=== PATIENT | female | born 1960 | race Caucasian/White ===

== ENCOUNTER 2017-04-22 13:42 | Emergency (ER) | payer MEDICAID ==
[~2017-04-22] VITALS: Ht 165.1 cm; Wt 61.7 kg
[2017-04-22 13:50] VITALS: BP 137/82
== END 2017-04-22 14:44 | disposition home or self-care (01) ==
LOC: ED 14:40
DX: K11.21 Acute sialoadenitis (principal)
CPT/HCPCS: 99283

== ENCOUNTER → 2017-06-09 | Outpatient (CLI) | payer MEDICAID | END | disposition home or self-care (01) | LOC: CFH 06:57 | PROVIDERS: ATTEND Internal Medicine Hematology & Oncology | DX: E83.110 Hereditary hemochromatosis (principal) | CPT/HCPCS: 76700 ==

== ENCOUNTER → 2017-06-18 | Outpatient (CLI) | payer MEDICAID | END | disposition home or self-care (01) | LOC: CFH 13:05 | PROVIDERS: ATTEND Internal Medicine Hematology & Oncology | DX: Z12.31 Encounter for screening mammogram for malignant neoplasm of breast (principal) | CPT/HCPCS: 77067 ==

== ENCOUNTER 2019-12-20 14:55 | Emergency (ER) | payer MEDICAID ==
--- NOTE | 2019-12-20 15:07 | NUR ---
PT BIB EMS FOR NEAR SYNCOPLE EPISODE. 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 PT DONATED 530MLS OF BLOOD TODAY. WENT TO EAT AFTER AND AT THE [facility]AURANT FELT DIZZY, NAUSEOUS, AND "I WAS HAVING TUNNEL VISION". STATES SHE WAS PALE AND SWEATY WELL. PT SAYS SHE DIDNT LOSE CONCIOUSNESS. 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 BLANKET PROVIDED. IN ROOM. CURRENTLY ONLY COMPLAINT PT HAS IS A HEADACHE
[2019-12-20 16:13] LABS: MEAN CORPUSCULAR HEMOGLOBIN 33.5 pg (27.0-34.8); MEAN CORPUSCULAR HGB CONC 31.9 g/dL (32.4-35.8); MEAN CORPUSCULAR VOLUME 105.1 fL (80-100); PLATELET COUNT 237 x10^3/uL (130-400); RED BLOOD COUNT 3.58 x10^6/uL (3.82-5.3); RED CELL DISTRIBUTION WIDTH 14.2 % (9.6-15.2)
[2019-12-20 16:21] VITALS: BP 101/54
[2019-12-20 16:25] LABS: ANION GAP 7 mmol/L (5-15); CALCIUM 8.4 mg/dL (8.5-10.1); CHLORIDE 110 mmol/L (98-107)
[2019-12-20 16:27] LABS: CREATININE 0.67 mg/dL (0.55-1.02)
[2019-12-20 16:56] LABS: BASOPHILS # (AUTO) 0.04 x10^3/uL (0-0.1); BASOPHILS % (AUTO) 0 % (0-1); EOSINOPHILS # (AUTO) 0.13 x10^3/uL (0-0.4); EOSINOPHILS % (AUTO) 1 % (1-7); LYMPHOCYTES # (AUTO) 1.66 x10^3/uL (1-3.4); LYMPHOCYTES % (AUTO) 15 % (22-44); MD SCAN; MONOCYTES # (AUTO) 0.41 x10^3/uL (0.2-0.8); MONOCYTES % (AUTO) 4 % (2-9); NEUTROPHILS # (AUTO) 8.76 x10^3/uL (1.8-6.8); NEUTROPHILS % (AUTO) 80 % (42-75)
== END 2019-12-20 17:26 | disposition home or self-care (01) ==
LOC: ED 15:39
DX: R55 Syncope and collapse (principal); R42 Dizziness and giddiness; R11.0 Nausea; R51 Headache; R94.31 Abnormal electrocardiogram [ECG] [EKG]; F17.210 Nicotine dependence, cigarettes, uncomplicated
CPT/HCPCS: 36415; 80048; 85025; 93005; 99284

== ENCOUNTER 2020-04-01 16:17 | Emergency (ER) | payer MEDICAID ==
[~2020-04-01] VITALS: Ht 167.6 cm; Wt 57.5 kg
[2020-04-01] MEDS ORDERED: METR375C PO (16:29)
[2020-04-01] MEDS ORDERED: SODIUM CHLORIDE FLUSH 10ML SYR IVF ONE (17:30)
[2020-04-01] MEDS ORDERED: SODIUM CHLORIDE 0.9% 1,000ML IVBOLUS ONE (17:30)
[2020-04-01 17:58] LABS: BASOPHILS % (AUTO) 0 % (0-1); EOSINOPHILS % (AUTO) 0 % (1-7); LYMPHOCYTES % (AUTO) 17 % (22-44); MEAN CORPUSCULAR HEMOGLOBIN 30.1 pg (27.0-34.8); MEAN CORPUSCULAR HGB CONC 32.6 g/dL (32.4-35.8); MEAN PLATELET VOLUME 7.9 fL (7.4-10.4); MONOCYTES % (AUTO) 9 % (2-9); NEUTROPHILS % (AUTO) 74 % (42-75); PLATELET COUNT 117 x10^3/uL (130-400); RED BLOOD COUNT 4.63 x10^6/uL (3.82-5.3); RED CELL DISTRIBUTION WIDTH 21.5 % (9.6-15.2)
[2020-04-01 18:03] LABS: MD NO
[2020-04-01 18:08] LABS: ALANINE AMINOTRANSFERASE 49 U/L (12-78); ALBUMIN 3.7 g/dL (3.4-5.0); ANION GAP 7 mmol/L (5-15); CALCIUM 8.7 mg/dL (8.5-10.1); CHLORIDE 103 mmol/L (98-107); CREATININE 0.81 mg/dL (0.55-1.02); IRON LEVEL 247 mcg/dL (50-170)
[2020-04-01 18:11] LABS: % IRON SATURATION 84 % (20-55); ALKALINE PHOSPHATASE 141 U/L (45-117); BILIRUBIN,TOTAL 0.8 mg/dL (0.2-1.0); TOTAL IRON BINDING CAPACITY 294 mcg/dL (250-450); TOTAL PROTEIN 7.6 g/dL (6.4-8.2)
--- NOTE | 2020-04-01 19:09 | NUR ---
Back from ct Report from Ferdinand DING With assessment vss, no neuro deficits at this time Reviewed estimated poc
--- NOTE | 2020-04-01 19:28 | NUR ---
ivf complete. provider to bedside to explain poc (dispo)
[2020-04-01 20:13] VITALS: BP 150/75
== END 2020-04-01 20:17 | disposition home or self-care (01) ==
LOC: ED 16:42
DX: R56.9 Unspecified convulsions (principal); R55 Syncope and collapse; R00.0 Tachycardia, unspecified; F17.200 Nicotine dependence, unspecified, uncomplicated
CPT/HCPCS: 36415; 70450; 80053; 82728; 83540; 83550; 85025; 96360; 99284; J7030

== ENCOUNTER 2021-01-30 12:34 | Inpatient (IN) | payer MEDICAID ==
[~2021-01-30] VITALS: Ht 167.6 cm; Wt 68.2 kg
[~2021-01-30 12:34] MED LIST: METR375C PO
[2021-01-30 13:34] LABS: BASOPHILS % (AUTO) 0 % (0-1); EOSINOPHILS % (AUTO) 1 % (1-7); LYMPHOCYTES % (AUTO) 12 % (22-44); MEAN CORPUSCULAR HEMOGLOBIN 34.2 pg (27.0-34.8); MEAN CORPUSCULAR HGB CONC 33.9 g/dL (32.4-35.8); MEAN PLATELET VOLUME 8.8 fL (7.4-10.4); MONOCYTES % (AUTO) 6 % (2-9); NEUTROPHILS % (AUTO) 80 % (42-75); PLATELET COUNT 212 x10^3/uL (130-400); RED BLOOD COUNT 3.88 x10^6/uL (3.82-5.3); RED CELL DISTRIBUTION WIDTH 14.9 % (9.6-15.2)
[2021-01-30 13:44] LABS: ALANINE AMINOTRANSFERASE 25 U/L (12-78); ANION GAP 13 mmol/L (5-15); CALCIUM 8.4 mg/dL (8.5-10.1); CHLORIDE 86 mmol/L (98-107); CREATININE 0.68 mg/dL (0.55-1.02)
[2021-01-30 13:46] LABS: ALKALINE PHOSPHATASE 375 U/L (45-117); TOTAL PROTEIN 6.4 g/dL (6.4-8.2)
--- NOTE | 2021-01-30 13:51 | NUR ---
K+ 2.4 preeti: 15.9
[2021-01-30 13:52] LABS: BILIRUBIN,TOTAL 15.9 mg/dL (0.2-1.0)
[2021-01-30] MEDS ORDERED: FAMOTIDINE 20 MG/2 ML IVPush ONE (14:30)
[2021-01-30] MEDS ORDERED: SODIUM CHLORIDE FLUSH 10ML SYR IVF ONE (14:30)
[2021-01-30] MEDS ORDERED: SODIUM CHLORIDE 0.9% 1,000ML IVBOLUS ONE ×2 (14:30→16:30)
[2021-01-30] MEDS ORDERED: ONDANSETRON 2MG/ML, 2ML IVPush ONE (14:30)
[2021-01-30] MEDS ORDERED: MORPHINE SULFATE 4 MG/ML, 1ML IVPush PRN (14:30)
--- NOTE | 2021-01-30 14:30 | NUR ---
PT BIB SELF VIA POV. PER PT PROGRESSIVE ABD PAIN X5 DAYS. N/V. PT JAUNDICE, BLOATED ABD. PT STATES SHE HAS NO HX OF THIS PAIN. PT REPORTS ONLY ABD SURGERY IS HYSTERECTOMY. PT RESTING IN RBRONX, MONITORING IN PLACE, NADN AT THIS TIME, PIV PLACED IN LEFT R AC, WCTM.
[2021-01-30] MEDS ORDERED: MORPHINE SULFATE 4 MG/ML, 1ML ONE (14:35)
[2021-01-30] MEDS ORDERED: ONDANSETRON 2MG/ML, 2ML ONE (14:35)
[2021-01-30] MEDS ORDERED: FAMOTIDINE 20 MG/2 ML ONE (14:36)
[2021-01-30 14:50] LABS: INTERNATIONAL NORMALIZED RATIO 1.72 (0.93-1.1); PROTHROMBIN TIME 17.9 Seconds (9.6-11.5)
[2021-01-30] MEDS ORDERED: POTASSIUM CHLORIDE 40 MEQ in SODIUM CHLORIDE 0.9% 500 ML IV ONE (15:00)
[2021-01-30] MEDS ORDERED: OMNIPAQUE 350 MG/ML, 100ML BOTTLE ONE (15:08)
[2021-01-30 16:51] LABS: MICROSCOPIC INDICATED
[2021-01-30] MEDS ORDERED: ENALAPRILAT 1.25 MG/ML, 2ML IVPush PRN (17:00)
[2021-01-30] MEDS ORDERED: DILTIAZEM 5 MG/ML, 5ML IVPush PRN (17:00)
[2021-01-30] MEDS ORDERED: hydrALAzine 20 MG/ML, 1ML IVPush PRN (17:00)
[2021-01-30] MEDS ORDERED: LABETALOL 5MG/ML, 20ML IVPush PRN (17:00)
[2021-01-30] MEDS ORDERED: METOCLOPRAMIDE 5 MG/ML, 2ML IVPush PRN (17:00)
[2021-01-30 18:51] LABS: CHLORIDE 96 mmol/L (98-107); CREATININE 0.43 mg/dL (0.55-1.02)
--- NOTE | 2021-01-30 18:54 | NUR ---
REPORT TO TIMUR JEAN.
[2021-01-30] MEDS ORDERED: MAGNESIUM SULFATE PMX 2GM/50ML 50 ML IV ONE (19:00)
[2021-01-30 19:05] LABS: ANION GAP 11 mmol/L (5-15)
[2021-01-30 21:14] VITALS: BP 108/73
[2021-01-30] MEDS: ENOXAPARIN 40 MG/0.4 ML SQ SCH (21:45)
[2021-01-30] MEDS: FAMOTIDINE 20 MG/2 ML IVPush SCH (21:45)
[2021-01-30] MEDS: ONDANSETRON 2MG/ML, 2ML IVPush PRN (22:19)
[2021-01-30] MEDS: morphine SULFATE 10 MG/ML, 1ML IVPush PRN (22:19)
[2021-01-30] MEDS ORDERED: OMEP40CA8 PO (22:37)
[2021-01-31] VITALS (12 sets, daily range): BP systolic 96–111; BP diastolic 54–73
[2021-01-31] MEDS: POTASSIUM CHLORIDE 40 MEQ in D5%-0.9% NACL 1,000 ML IV SCH ×2 (00:39→16:29)
[2021-01-31] MEDS: morphine SULFATE 10 MG/ML, 1ML IVPush PRN ×3 (01:42→21:10)
[2021-01-31 02:12] LABS: ANION GAP 8 mmol/L (5-15); CALCIUM 7.1 mg/dL (8.5-10.1); CHLORIDE 98 mmol/L (98-107)
[2021-01-31] MEDS ORDERED: POTASSIUM CHLORIDE 40 MEQ in SODIUM CHLORIDE 0.9% 500 ML IV ONE ×3 (03:00→21:00)
[2021-01-31] MEDS: ONDANSETRON 2MG/ML, 2ML IVPush PRN ×2 (05:19→15:09)
[2021-01-31 06:04] LABS: BASOPHILS % (AUTO) 2 % (0-1); EOSINOPHILS % (AUTO) 1 % (1-7); LYMPHOCYTES % (AUTO) 17 % (22-44); MEAN CORPUSCULAR HEMOGLOBIN 34.7 pg (27.0-34.8); MEAN PLATELET VOLUME 9.2 fL (7.4-10.4); MONOCYTES % (AUTO) 7 % (2-9); NEUTROPHILS % (AUTO) 74 % (42-75); PLATELET COUNT 176 x10^3/uL (130-400); RED BLOOD COUNT 3.41 x10^6/uL (3.82-5.3); RED CELL DISTRIBUTION WIDTH 15.3 % (9.6-15.2)
[2021-01-31] MEDS ORDERED: NICOTINE 14MG/24 HR PATCH.TD24 TD ONE (08:30)
[2021-01-31] MEDS: FAMOTIDINE 20 MG/2 ML IVPush SCH ×2 (09:00→21:10)
[2021-01-31] MEDS: LORazepam 2 MG/ML, 1ML IVPush ONE ×2 (09:07→09:11)
[2021-01-31] MEDS ORDERED: BENZOCAINE 20% SPRAY 0.5ML ONE (09:15)
[2021-01-31] MEDS ORDERED: LIDOCAINE GEL 2%, 5ML ONE (09:16)
[2021-01-31 10:18] LABS: ALBUMIN 1.7 g/dL (3.4-5.0); ANION GAP 10 mmol/L (5-15); CALCIUM 7.2 mg/dL (8.5-10.1); CHLORIDE 100 mmol/L (98-107)
[2021-01-31 10:21] LABS: ALANINE AMINOTRANSFERASE 20 U/L (12-78); ALKALINE PHOSPHATASE 309 U/L (45-117); CREATININE 0.45 mg/dL (0.55-1.02)
[2021-01-31 15:01] LABS: ANION GAP 7 mmol/L (5-15); CALCIUM 7.6 mg/dL (8.5-10.1); CHLORIDE 98 mmol/L (98-107); CREATININE 0.45 mg/dL (0.55-1.02)
[2021-01-31 15:16] LABS: IRON LEVEL 94 mcg/dL (50-170); TOTAL IRON BINDING CAPACITY 89 mcg/dL (250-450)
[2021-01-31 15:57] LABS: % IRON SATURATION > 100 % (20-55)
[2021-01-31 19:33] LABS: ANION GAP 8 mmol/L (5-15); CALCIUM 7.4 mg/dL (8.5-10.1); CHLORIDE 100 mmol/L (98-107)
[2021-01-31 19:34] LABS: CREATININE 0.41 mg/dL (0.55-1.02)
[2021-01-31] MEDS: MICONAZOLE 7 VAG. CRM 2%, 45GM VG SCH (21:10)
[2021-01-31] MEDS: ENOXAPARIN 40 MG/0.4 ML SQ SCH (21:12)
[2021-02-01 01:37] VITALS: BP 112/61
[2021-02-01 01:55] LABS: BASOPHILS % (AUTO) 1 % (0-1); EOSINOPHILS % (AUTO) 1 % (1-7); LYMPHOCYTES % (AUTO) 13 % (22-44); MEAN CORPUSCULAR HEMOGLOBIN 35.2 pg (27.0-34.8); MEAN CORPUSCULAR HGB CONC 34.2 g/dL (32.4-35.8); MEAN PLATELET VOLUME 9.2 fL (7.4-10.4); MONOCYTES % (AUTO) 6 % (2-9); NEUTROPHILS % (AUTO) 79 % (42-75); PLATELET COUNT 185 x10^3/uL (130-400); RED BLOOD COUNT 3.28 x10^6/uL (3.82-5.3); RED CELL DISTRIBUTION WIDTH 15.5 % (9.6-15.2)
[2021-02-01 02:07] LABS: ANION GAP 6 mmol/L (5-15); CALCIUM 7.5 mg/dL (8.5-10.1); CHLORIDE 104 mmol/L (98-107)
[2021-02-01] MEDS: FAMOTIDINE 20 MG/2 ML IVPush SCH ×2 (08:04→20:25)
[2021-02-01 08:06] VITALS: BP 100/68
[2021-02-01] MEDS: morphine SULFATE 10 MG/ML, 1ML IVPush PRN (10:34)
[2021-02-01 11:06] LABS: ALANINE AMINOTRANSFERASE 22 U/L (12-78); ALBUMIN 1.5 g/dL (3.4-5.0); ANION GAP 9 mmol/L (5-15); CALCIUM 7.4 mg/dL (8.5-10.1); CHLORIDE 105 mmol/L (98-107); CREATININE 0.43 mg/dL (0.55-1.02)
[2021-02-01 11:09] LABS: ALKALINE PHOSPHATASE 285 U/L (45-117); BILIRUBIN,TOTAL 13.6 mg/dL (0.2-1.0)
[2021-02-01] MEDS: POTASSIUM CHLORIDE 40 MEQ in D5%-0.9% NACL 1,000 ML IV SCH (12:51)
[2021-02-01 13:15] VITALS: BP 101/71
[2021-02-01] MEDS ORDERED: CEFTRIAXONE 1,000 MG IV SCH (13:30)
[2021-02-01] MEDS ORDERED: CEFTRIAXONE 1,000 MG IM SCH (13:30)
[2021-02-01] MEDS: CEFTRIAXONE 1,000 MG in DEXTROSE 5% 50 ML IVPB SCH (14:24)
[2021-02-01 19:11] VITALS: BP 111/76
[2021-02-01] MEDS: ENOXAPARIN 40 MG/0.4 ML SQ SCH (20:25)
[2021-02-01] MEDS: MICONAZOLE 7 VAG. CRM 2%, 45GM VG SCH (23:35)
[2021-02-02 01:40] VITALS: BP 117/75
[2021-02-02] MEDS: POTASSIUM CHLORIDE 40 MEQ in D5%-0.9% NACL 1,000 ML IV SCH ×3 (01:46→23:56)
[2021-02-02 07:34] VITALS: BP 92/64
[2021-02-02] MEDS: FAMOTIDINE 20 MG/2 ML IVPush SCH ×2 (08:35→20:46)
[2021-02-02] MEDS: CEFTRIAXONE 1,000 MG in DEXTROSE 5% 50 ML IVPB SCH (13:29)
[2021-02-02] MEDS ORDERED: CEFTRIAXONE 1,000 MG IV SCH (13:30)
[2021-02-02 14:20] VITALS: BP 112/50
[2021-02-02 20:40] VITALS: BP 96/59
[2021-02-02] MEDS: KETOROLAC 30 MG/1 ML IV PRN (20:46)
[2021-02-02] MEDS: ENOXAPARIN 40 MG/0.4 ML SQ SCH (20:53)
[2021-02-02] MEDS: MICONAZOLE 7 VAG. CRM 2%, 45GM VG SCH (20:53)
[2021-02-03 06:37] VITALS: BP 88/60
[2021-02-03 08:05] VITALS: BP 108/65
[2021-02-03] MEDS: FAMOTIDINE 20 MG/2 ML IVPush SCH ×2 (09:22→22:14)
[2021-02-03] MEDS: POTASSIUM CHLORIDE 40 MEQ in D5%-0.9% NACL 1,000 ML IV SCH (12:32)
[2021-02-03 13:50] VITALS: BP 110/68
[2021-02-03] MEDS: CEFTRIAXONE 1,000 MG in DEXTROSE 5% 50 ML IVPB SCH ×2 (14:00→16:11)
[2021-02-03 16:15] LABS: ALANINE AMINOTRANSFERASE 26 U/L (12-78); ALBUMIN 1.5 g/dL (3.4-5.0); ANION GAP 8 mmol/L (5-15); CALCIUM 7.7 mg/dL (8.5-10.1); CHLORIDE 113 mmol/L (98-107)
[2021-02-03 16:17] LABS: ALKALINE PHOSPHATASE 334 U/L (45-117); TOTAL PROTEIN 5.5 g/dL (6.4-8.2)
[2021-02-03 16:23] LABS: BILIRUBIN,TOTAL 15.3 mg/dL (0.2-1.0)
[2021-02-03 19:09] VITALS: BP 110/74
[2021-02-03] MEDS: MICONAZOLE 7 VAG. CRM 2%, 45GM VG SCH (21:00)
[2021-02-03] MEDS: ENOXAPARIN 40 MG/0.4 ML SQ SCH (22:00)
[2021-02-04] MEDS: KETOROLAC 30 MG/1 ML IV PRN (01:51)
[2021-02-04 01:54] VITALS: BP 108/75
[2021-02-04] MEDS: POTASSIUM CHLORIDE 40 MEQ in D5%-0.9% NACL 1,000 ML IV SCH ×3 (02:02→23:25)
[2021-02-04 07:22] VITALS: BP 110/50
[2021-02-04] MEDS: FAMOTIDINE 20 MG/2 ML IVPush SCH ×2 (09:19→21:48)
[2021-02-04 09:52] LABS: ALANINE AMINOTRANSFERASE 21 U/L (12-78); ALBUMIN 1.4 g/dL (3.4-5.0); ANION GAP 9 mmol/L (5-15); CALCIUM 7.6 mg/dL (8.5-10.1); CHLORIDE 115 mmol/L (98-107); CREATININE 0.48 mg/dL (0.55-1.02)
[2021-02-04 09:57] LABS: BILIRUBIN,INDIRECT 2.7 mg/dL (0.0-2.0); BILIRUBIN,TOTAL 14.2 mg/dL (0.2-1.0)
[2021-02-04 09:58] LABS: ALKALINE PHOSPHATASE 309 U/L (45-117)
[2021-02-04 10:00] LABS: BILIRUBIN, DIRECT 11.5 mg/dL (0.1-0.2)
[2021-02-04 12:35] VITALS: BP 116/70
[2021-02-04] MEDS: CEFTRIAXONE 1,000 MG in DEXTROSE 5% 50 ML IVPB SCH (17:05)
[2021-02-04 18:48] VITALS: BP 113/78
[2021-02-04] MEDS: morphine SULFATE 10 MG/ML, 1ML IVPush PRN ×2 (19:50→23:31)
[2021-02-04] MEDS: MICONAZOLE 7 VAG. CRM 2%, 45GM VG SCH (21:00)
[2021-02-04] MEDS: ENOXAPARIN 40 MG/0.4 ML SQ SCH (21:48)
[2021-02-05 00:14] VITALS: BP 106/73
[2021-02-05 01:14] LABS: ALANINE AMINOTRANSFERASE 25 U/L (12-78); ALBUMIN 1.4 g/dL (3.4-5.0); ANION GAP 9 mmol/L (5-15); CALCIUM 7.4 mg/dL (8.5-10.1); CHLORIDE 110 mmol/L (98-107); CREATININE 0.49 mg/dL (0.55-1.02)
[2021-02-05 01:16] LABS: ALKALINE PHOSPHATASE 333 U/L (45-117); BILIRUBIN,TOTAL 14.4 mg/dL (0.2-1.0); TOTAL PROTEIN 5.4 g/dL (6.4-8.2)
[2021-02-05 08:27] VITALS: BP 117/79
[2021-02-05] MEDS ORDERED: LIDOCAINE 1%, 10ML ONE (09:51)
[2021-02-05] MEDS: FAMOTIDINE 20 MG/2 ML IVPush SCH ×2 (09:59→21:50)
[2021-02-05 11:34] LABS: CELLS COUNTED 44
[2021-02-05 13:11] VITALS: BP 109/68
[2021-02-05] MEDS: CEFTRIAXONE 1,000 MG in DEXTROSE 5% 50 ML IVPB SCH (17:23)
[2021-02-05 18:59] VITALS: BP 96/66
[2021-02-05] MEDS: MICONAZOLE 7 VAG. CRM 2%, 45GM VG SCH (20:52)
[2021-02-05] MEDS: ENOXAPARIN 40 MG/0.4 ML SQ SCH (21:50)
[2021-02-05] MEDS: ONDANSETRON 2MG/ML, 2ML IVPush PRN (22:30)
[2021-02-06 00:54] VITALS: BP 114/64
[2021-02-06 06:14] LABS: MEAN CORPUSCULAR HGB CONC 33.5 g/dL (32.4-35.8); MEAN PLATELET VOLUME 9.1 fL (7.4-10.4); PLATELET COUNT 177 x10^3/uL (130-400); RED BLOOD COUNT 3.29 x10^6/uL (3.82-5.3); RED CELL DISTRIBUTION WIDTH 15.7 % (9.6-15.2)
[2021-02-06 06:29] LABS: CALCIUM 7.7 mg/dL (8.5-10.1); CHLORIDE 109 mmol/L (98-107)
[2021-02-06 06:33] LABS: ALANINE AMINOTRANSFERASE 20 U/L (12-78); ALBUMIN 1.2 g/dL (3.4-5.0); ALKALINE PHOSPHATASE 342 U/L (45-117); ANION GAP 7 mmol/L (5-15); BILIRUBIN,TOTAL 13.6 mg/dL (0.2-1.0); CREATININE 0.38 mg/dL (0.55-1.02); TOTAL PROTEIN 4.9 g/dL (6.4-8.2)
[2021-02-06 06:34] LABS: INTERNATIONAL NORMALIZED RATIO 2.38 (0.93-1.1); PROTHROMBIN TIME 24.4 Seconds (9.6-11.5)
[2021-02-06 06:40] VITALS: BP 102/70
[2021-02-06 06:50] LABS: BAND#(MANUAL) 2.25 x10^3/uL; BANDS%(MANUAL) 14 % (0-7); LYMPH#(MANUAL) 1.29 x10^3/uL (1-3.4); LYMPHS% (MANUAL) 8 % (22-44); MONOS#(MANUAL) 1.13 x10^3/uL (0.3-2.7); MONOS% (MANUAL) 7 % (2-9); SEG#(MANUAL) 11.43 x10^3/uL (1.8-6.8); SEGS% (MANUAL) 71 % (42-75); TARGET CELLS 1+
[2021-02-06 06:51] LABS: ANISOCYTOSIS 1+; PMNS WITH VACUOLES 1+; STOMATOCYTES 1+; TOXIC GRAN 1+
[2021-02-06 06:52] LABS: <PLATELET ESTIMATE> ADEQUATE; HYPOCHROMIA 1+; LARGE PLATELETS 1+
[2021-02-06] MEDS: FAMOTIDINE 20 MG/2 ML IVPush SCH (08:58)
[2021-02-06] MEDS ORDERED: SPIRONOLACTONE 100 MG TABLET PO SCH (09:00)
[2021-02-06] MEDS ORDERED: FUROSEMIDE 40 MG TABLET PO SCH (09:00)
[2021-02-06] MEDS ORDERED: PHYTONADIONE 5 MG TABLET PO SCH (11:30)
[2021-02-06 11:54] LABS: FREE T4 (FREE THYROXINE) 1.04 ng/dL (0.76-1.46)
[2021-02-06] MEDS ORDERED: FURO40TA6 PO (12:26)
[2021-02-06] MEDS ORDERED: SPIR100T PO (12:26)
[2021-02-06] MEDS ORDERED: PHYT5TAB2 PO (12:26)
[2021-02-06] MEDS ORDERED: POTASSIUM CHLORIDE 20 MEQ TAB.ER.PRT PO ONE (13:00)
[2021-02-06 14:24] VITALS: BP 101/57
== END 2021-02-06 16:10 | disposition home or self-care (01) | DRG 389 ==
LOC: ED 16:42 → EDIP 16:52 → 4EST 21:04 → 3N 02-01 19:19
PROVIDERS: ADMIT Family Medicine; ATTEND Family Medicine
PROC: 0D9670Z Drainage of Stomach with Drainage Device, Via Natural or Artificial Opening (ICD-10-PCS; 2021-01-31)
PROC: 0W9G3ZZ Drainage of Peritoneal Cavity, Percutaneous Approach (ICD-10-PCS; principal; 2021-02-05)
DX: K56.51 Intestinal adhesions [bands], with partial obstruction (principal); D68.9 Coagulation defect, unspecified; R65.10 Systemic inflammatory response syndrome (SIRS) of non-infectious origin without acute organ dysfunction; R18.8 Other ascites; E87.2 Acidosis; E87.1 Hypo-osmolality and hyponatremia; K56.7 Ileus, unspecified; Z66 Do not resuscitate; E87.6 Hypokalemia; E88.09 Other disorders of plasma-protein metabolism, not elsewhere classified; K21.9 Gastro-esophageal reflux disease without esophagitis; E83.42 Hypomagnesemia; K72.90 Hepatic failure, unspecified without coma; K76.0 Fatty (change of) liver, not elsewhere classified; K82.8 Other specified diseases of gallbladder; R16.0 Hepatomegaly, not elsewhere classified; Z90.710 Acquired absence of both cervix and uterus; Z79.899 Other long term (current) drug therapy
CPT/HCPCS: 36415; 74250; 74340; 82042; 82945; 86038; 86431; 89050; 89051; 96361; 96365; 96375; 99285; J3490; J7042; 49083; 71045; 74177; 80048; 80053; 80074; 81001; 82103; 82140; 82247; 82248; 82306; 82390; 82728; 82784; 83516; 83520; 83540; 83550; 83605; 83615; 83690; 83735; 84100; 84157; 84439; 84443; 84590; 84630; 85025; 85610; 86160; 86225; 86235; 86255; 86256; 86376; 86704; 86706; 87040; 87070; 87075; 87077; 87086; 87116; 87205; 87206; 88112; 88305; 93005; 93306; 93975; G0378; J0696; J1650; J1885; J2405; J3480; Q9967; C8901; J2060; J2270; J2765; J3475; J7030; J7040

== ENCOUNTER 2021-02-15 15:35 | Inpatient (IN) | payer MEDICAID ==
[~2021-02-15] VITALS: Ht 167.6 cm; Wt 63.3 kg
[2021-02-28 13:05] VITALS: BP 90/57
== END 2021-02-28 15:40 | disposition hospice, home (50) | DRG 441 ==
LOC: ED 17:03 → OBSVTOIN 18:03 → EDIP 18:03 → INTOOBSV 18:03 → 4EST 02-16 20:41 → 4WST 02-26 06:27 → 4NW 02-26 13:52
PROVIDERS: ADMIT Internal Medicine; ATTEND Internal Medicine
PROC: 0W9G3ZZ Drainage of Peritoneal Cavity, Percutaneous Approach (ICD-10-PCS; 2021-02-15)
PROC: 0HQ0XZZ Repair Scalp Skin, External Approach (ICD-10-PCS; 2021-02-15)
PROC: 0W9G3ZZ Drainage of Peritoneal Cavity, Percutaneous Approach (ICD-10-PCS; principal; 2021-02-23)
PROC: 02HV33Z Insertion of Infusion Device into Superior Vena Cava, Percutaneous Approach (ICD-10-PCS; 2021-02-26)
PROC: B5181ZA Fluoroscopy of Superior Vena Cava using Low Osmolar Contrast, Guidance (ICD-10-PCS; 2021-02-26)
PROC: 0WHG33Z Insertion of Infusion Device into Peritoneal Cavity, Percutaneous Approach (ICD-10-PCS; 2021-02-28)
DX: K72.90 Hepatic failure, unspecified without coma (principal); K85.90 Acute pancreatitis without necrosis or infection, unspecified; N17.0 Acute kidney failure with tubular necrosis; J96.00 Acute respiratory failure, unspecified whether with hypoxia or hypercapnia; J18.9 Pneumonia, unspecified organism; E43 Unspecified severe protein-calorie malnutrition; K76.6 Portal hypertension; J94.8 Other specified pleural conditions; J44.0 Chronic obstructive pulmonary disease with (acute) lower respiratory infection; D62 Acute posthemorrhagic anemia; B37.49 Other urogenital candidiasis; D68.4 Acquired coagulation factor deficiency; E87.1 Hypo-osmolality and hyponatremia; K70.11 Alcoholic hepatitis with ascites; K70.31 Alcoholic cirrhosis of liver with ascites; I12.9 Hypertensive chronic kidney disease with stage 1 through stage 4 chronic kidney disease, or unspecified chronic kidney disease; F17.210 Nicotine dependence, cigarettes, uncomplicated; E83.119 Hemochromatosis, unspecified; D69.6 Thrombocytopenia, unspecified; B95.2 Enterococcus as the cause of diseases classified elsewhere; E86.1 Hypovolemia; E87.6 Hypokalemia; F10.10 Alcohol abuse, uncomplicated; S01.01XA Laceration without foreign body of scalp, initial encounter; K21.9 Gastro-esophageal reflux disease without esophagitis; Z51.5 Encounter for palliative care; I95.9 Hypotension, unspecified; E86.9 Volume depletion, unspecified; N28.9 Disorder of kidney and ureter, unspecified; R53.81 Other malaise; W01.0XXA Fall on same level from slipping, tripping and stumbling without subsequent striking against object, initial encounter; Y95 Nosocomial condition; N18.30 Chronic kidney disease, stage 3 unspecified; R94.31 Abnormal electrocardiogram [ECG] [EKG]; Z66 Do not resuscitate; Z81.8 Family history of other mental and behavioral disorders; Z79.899 Other long term (current) drug therapy; Z88.0 Allergy status to penicillin; Z71.6 Tobacco abuse counseling; Z80.8 Family history of malignant neoplasm of other organs or systems; Z82.49 Family history of ischemic heart disease and other diseases of the circulatory system; Y93.89 Activity, other specified; Y92.098 Other place in other non-institutional residence as the place of occurrence of the external cause; Y99.8 Other external cause status
CPT/HCPCS: 36415; 82042; 82150; 82945; 83986; 84145; 87106; 89051; 96361; 96365; 99285; J3490